=== PATIENT | male | born 1995 | race Caucasian/White ===

== ENCOUNTER → 2016-03-27 | Outpatient (CLI) | payer BC ==
[2016-03-27 14:47] LABS: HEMATOCRIT 45.4 % (42-52); MEAN CELL VOLUME 84.7 fL (80-100); MEAN CORPUSCULAR HEMOGLOBIN 29.1 pg (25-34); MEAN CORPUSCULAR HGB CONC 34.4 g/dl (32-36); MEAN PLATELET VOLUME 11.2 fL (7.4-10.4); PLATELET COUNT 233 K/uL (130-400); RED BLOOD COUNT 5.36 M/uL (4.7-6.1); WHITE BLOOD COUNT 5.82 K/uL (4.8-10.8)
[2016-03-27 17:25] LABS: ALT/SGPT 22 U/L (12-78); BLOOD UREA NITROGEN 11 mg/dl (7-18); CALCIUM 9.3 mg/dl (8.5-10.1); CARBON DIOXIDE 25 mmol/L (21-32); CHLORIDE 105 mmol/L (98-107); CHOLESTEROL 177 mg/dl (0-200); GLUCOSE 85 mg/dl (70-99); POTASSIUM 4.1 mmol/L (3.5-5.1); SODIUM 141 mmol/L (136-145)
[2016-03-27 17:35] LABS: ALB/GLOB RATIO 1.6 (0.9-2); ALKALINE PHOSPHATASE 66 U/L (45-117); AST/SGOT 14 U/L (15-37); CHOLESTEROL/HDL RATIO 3.7; HDL CHOLESTEROL 48 mg/dl; LDL CHOLESTEROL CALCULATED 110 mg/dl; TRIGLYCERIDES 94 mg/dl (0-150); VERY LOW DENSITY LIPOPROT CALC 19 mg/dl
== END | disposition home or self-care (01) ==
LOC: C.LAB1850 13:39
PROVIDERS: ATTEND Internal Medicine
DX: Z00.00 Encounter for general adult medical examination without abnormal findings (principal)